=== PATIENT | male | born 1965 | race African-American/Black ===

== ENCOUNTER 2021-09-16 00:21 | Day surgery (SDC) | payer BC, SELFPAY ==
[2021-09-02 13:30] VITALS: BMI 31.4
--- NOTE | 2021-09-16 07:09 | PM.HPGS ---
History of Present Illness History of Present Illness Consent: Risks, benefits, and alternatives have been discussed and questions answered. Patient agrees to proceed with procedure. Chief complaint: hx of colon polyps, neoplasm screening Narrative: Dennis Patel is a 56 year old male referred for colon cancer screening. He has had a polyp removed in the past Review of Systems Review of Systems: All systems reviewed & are unremarkable except as noted in HPI and below PMFSH Past Medical History Medical History Asthma Chronic GERD HTN (hypertension) Obesity Social History Social History Smoking status: Former smoker Living arrangements: alone Spiritual care concerns: No Meds Home Medications and Allergies Home Medications Medication Instructions Recorded Confirmed Type lisinopril 20 mg PO DAILY 09/02/21 09/16/21 History Allergies Allergy/AdvReac Type Severity Reaction Status Date / Time No Known Allergies Allergy Verified 09/16/21 07:37 Exam Resp: Auscultation: clear to auscultation bilaterally Cardio: Rate: regular rate Rhythm: regular rhythm GI: GI Palp: Yes Soft to palpation and No Tenderness to palpation present (GI) Assessment and Plan Assessment and plan (1) Colon cancer screening: Code(s): Z12.11 - Encounter for screening for malignant neoplasm of colon Status: Acute Assessment and Plan: Colonoscopy with possible biopsy or polypectomy or cautery or injection of substances.
[2021-09-16 07:39] VITALS: BP 134/90; PULSE 88; RESP 18; TEMP 36.4; O2SAT 97; BMI 31.7
--- NOTE | 2021-09-16 07:47 | P.PNAN_ITS ---
Anes - Initial Pre Proc Eval Procedure: Operation Date: 09/16/21 08:30 Proposed Procedures p Screening Colonoscopy - Efrain Simon MD Date/Time: 09/16/21 07:47 Surgeon: Efrain Simon MD Pre Op Diagnosis: hx of colon polyps, neoplasm screening Patient Data Age: 56 Gender: M Height: 1.83 m Weight: 106.1 kg Last Vital Signs Temp 36.4 C 09/16/21 07:39 Pulse 88 09/16/21 07:39 Resp 18 09/16/21 07:39 BP 134/90 09/16/21 07:39 Pulse Ox 97 09/16/21 07:39 Allergies Allergy/AdvReac Type Severity Reaction Status Date / Time No Known Allergies Allergy Verified 09/16/21 07:37 Home Medications Medication Instructions Recorded Confirmed Type lisinopril 20 mg PO DAILY 09/02/21 09/16/21 History Patient hx anesthesia problems: none Family hx anesthesia problems: none Results Review: All pre-operative results and documents have been reviewed as part of the pre-operative evaluation. [facility] Past Medical History Medical History Asthma Chronic GERD HTN (hypertension) Obesity Social History Social History Smoking status: Former smoker Living arrangements: alone Spiritual care concerns: No Anes - Eval Final PreProcedure Day of Procedure 09/16/21 07:47 Patient weight: obese Heart: regular rate and rhythm Lungs: clear to auscultation and normal air movement Airway: Mallampati scale class II Neurological: alert and oriented Last oral intake: >/= 8 hours ASA classification: III Emergent: no Anesthetic plan: proceed Anesthesia type and monitoring: general GIVS Results Review: All pre-operative results and documents have been reviewed as part of the pre-operative evaluation. Informed Consent: The patient's anesthetic plan and its attendant risks and benefits were discussed with the patient/family/POA. Questions were solicited and answers provided to the satisfaction of the patient/family/POA.
[2021-09-16] MEDS: LACTATED RINGERS 1,000 ML 150 ML IV CONT (07:48)
[2021-09-16 08:47] VITALS: BP 120/81; PULSE 95; RESP 26; O2SAT 100
[2021-09-16 08:57] VITALS: BP 122/91; PULSE 84; RESP 22; O2SAT 100
[2021-09-16 09:07] VITALS: BP 142/97; PULSE 74; RESP 19; O2SAT 100
== END 2021-09-16 09:18 | disposition home or self-care (01) ==
PROVIDERS: PCP Internal Medicine; Visit Provider Internal Medicine Gastroenterology
PROC: 0DJD8ZZ Inspection of Lower Intestinal Tract, Via Natural or Artificial Opening Endoscopic (ICD-10-PCS; CPT 45378; principal; 2021-09-16 08:30)
DX: Z12.11 Encounter for screening for malignant neoplasm of colon (principal); D12.3 Benign neoplasm of transverse colon; I10 Essential (primary) hypertension; E66.9 Obesity, unspecified; Z68.31 Body mass index [BMI] 31.0-31.9, adult; Z87.891 Personal history of nicotine dependence
CPT/HCPCS: 45380; 88305; J2704; J7120